=== PATIENT | male | born 1995 ===

== ENCOUNTER 2022-04-22 16:12 | Emergency (ER) | payer SELFPAY ==
[2022-04-22 18:36] VITALS: BP 137/82; PULSE 91; RESP 18; TEMP 98.2
[2022-04-22] MEDS ORDERED: ACETAMINOPHEN TAB 500 MG TAB PO STA (18:37)
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
--- NOTE | 2022-04-22 19:46 | XR ---
EXAMINATION TYPE: XR chest 1V DATE OF EXAM: 04/22/2022 COMPARISON: NONE HISTORY: Back pain TECHNIQUE: Single view FINDINGS: Heart and mediastinum are normal. Lungs are clear. Diaphragm is normal. Bony thorax appears normal. IMPRESSION: Normal chest.
--- NOTE | 2022-04-22 19:52 | XR ---
EXAMINATION TYPE: XR shoulder complete LT DATE OF EXAM: 04/22/2022 COMPARISON: NONE HISTORY: Pain TECHNIQUE: 3 views FINDINGS: I see no fracture nor dislocation. Joint spaces are normal. IMPRESSION: Negative left shoulder exam. No fracture.
--- NOTE | 2022-04-22 19:52 | XR ---
EXAMINATION TYPE: XR facial bones complete DATE OF EXAM: 04/22/2022 COMPARISON: NONE HISTORY: Pain TECHNIQUE: 3 views FINDINGS: Orbital margins are intact. There is fluid level in the left maxillary sinus. The maxilla s hows irregular cortex involving the lateral wall in the frontal view. Zygomatic arches appear intact nasal bone is intact. Maxillary spine is intact. IMPRESSION: Fluid level left maxillary sinus. Possible fracture of the lateral wall of the left maxil jaky sinus.
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
[2022-04-22] MEDS ORDERED: AMOXIC-POT CLAV 875-125MG 1 EACH TAB PO STA (20:31)
--- NOTE | 2022-04-22 21:08 | XR ---
EXAMINATION TYPE: XR cervical spine comp DATE OF EXAM: 04/22/2022 COMPARISON: NONE HISTORY: Pain TECHNIQUE: 5 views FINDINGS: Cervical vertebra have normal alignment. Posterior elements are intact there is no compress ion fracture. Tonsils and adenoids appear normal. Epiglottis is normal. Neural foramina are widely patent. Atlantoa xial facet joint is normal. IMPRESSION: Normal cervical spine exam.
== END 2022-04-22 21:38 | disposition home or self-care (01) ==
LOC: EC 16:12
DX: S40.012A Contusion of left shoulder, initial encounter (principal); S00.81XA Abrasion of other part of head, initial encounter; S02.401A Maxillary fracture, unspecified side, initial encounter for closed fracture; S02.40FA Zygomatic fracture, left side, initial encounter for closed fracture; V89.2XXA Person injured in unspecified motor-vehicle accident, traffic, initial encounter
CPT/HCPCS: 70150; 70486; 71045; 72050